=== PATIENT | female | born 1975 | race Caucasian/White ===

== ENCOUNTER 2017-09-01 07:45 | Emergency (ER) | payer SELFPAY ==
--- NOTE | 2017-09-01 07:45 | DT_ITS ---
This patient was seen during an EMR downtime August 31, 2017 - September 07, 2017. This patient may have a combination of paper and electronic documentation or all paper documentation. All documentation is viewable within the e-chart portion of [employer] for each patient visit.
[2017-09-03 18:54] LABS: Bacteria 0 SEEN /hpf (None Seen); Color, Urine Yellow (Yellow); Glucose, Dipstick Normal (Normal); Ketone-Dipstick Negative (Negative); Leukocyte Esterase-Dipstick Negative /ul (Negative); Mucous, Urine 0 SEEN /hpf (<or=2+); Nitrite-Dipstick Negative (Negative); Occult Blood-Urine Negative /ul (Negative); Protein-Dipstick Negative (Negative); Red Blood Cells-Urine 0 SEEN /hpf (0-5); Squamous Epithelial Cells - UA 0 SEEN /hpf (5-10); Urine Bilirubin Dipstick Negative (Negative); Urine Clarity Clear (Clear); Urine Urobilinogen Normal (Normal); White Blood Cells 0 SEEN /hpf (0-5); Yeast-Urine RARE /hpf (None Seen)
[2017-09-03 18:57] LABS: Internal QC Validated? YES +Cl - CLEAR BKGD; Pregnancy, Urine Negative Negative
== END 2017-09-01 09:58 | disposition home or self-care (01) ==
PROVIDERS: Emergency Provider Emergency Medicine
DX: R11.2 Nausea with vomiting, unspecified (principal); M54.2 Cervicalgia; R51 Headache; F17.210 Nicotine dependence, cigarettes, uncomplicated
CPT/HCPCS: 81001; 81025; 99283

== ENCOUNTER 2017-12-11 18:06 | Emergency (ER) | payer SELFPAY ==
[2017-12-11 18:06] VITALS: BP 123/68; PULSE 85; RESP 18; TEMP 36.6; O2SAT 97; BMI 18.7
--- NOTE | 2017-12-11 18:30 | RAD_ITS ---
STUDY: X-RAY CHEST REASON FOR EXAM: Female, 42 years old. Cough and sore throat. TECHNIQUE: Single AP portable view of the chest. COMPARISON: None. FINDINGS: There is hyperinflation of the lungs consistent with chronic obstructive lung disease (COPD). No infiltrates or effusions. There is no demonstrated pleural abnormality. Normal size heart. Normal mediastinum and stevan. Normal visualized pulmonary arteries. Normal visualized aortic arch and descending thoracic aorta. Normal visualized thoracic spine. Normal visualized ribs, clavicles, and shoulders. There is no demonstrated abnormality of the visualized soft tissue structures of the upper abdomen. RAD/Chest 1 View (Portable) IMPRESSION: There are findings consistent with COPD. There is no evidence of acute chest disease. Electronically Signed: Feliciano Taylor MD at 18:45 EDT , Service support ,
[2017-12-11] MEDS: Ipratropium/Albuterol Sulfate 3 ML AMPUL.NEB INHALATION (18:39)
[2017-12-11 18:42] VITALS: PULSE 70; RESP 22
[2017-12-11] MEDS: Albuterol 2.5 MG/3 ML VIAL.NEB. INHALATION (20:27)
--- NOTE | 2017-12-11 20:37 | ED.DEP ---
ED Disposition - Plan for ED Patient: Chief Complaint: Cold Sx Instructions: ED Upper Resp Infec No Abx Tx Prescriptions: Prednisone [Deltasone] 40 mg PO DAILY #10 tablet Referrals: Care Physician,No Primary [Primary Care Provider] - Benedict Randolph MD [STAFF PHYSICIAN] -
--- NOTE | 2017-12-11 20:38 | ED.VISSUMM ---
- ER Visit Summary Date of Service: 12/11/17 Chief Complaint: Cough, shortness of breath History of Present Illness: The patient is a 42 F presenting with cough, shortness of breath. Her symptoms started yesterday. She was exposed to another person with strep throat and bronchitis. She has had painful swallowing but no difficulty swallowing. She has had a nonproductive cough and shortness of breath. She has a history of COPD and states she is supposed to have a nebulizer but currently does not have any medications. She does not currently have a primary care physician. She is a smoker. She denies chest pain. Denies other complaints. Physical Examination: Vitals are stable. Patient is afebrile. Alert no acute distress. HEENT exam pharyngeal erythema with no exudate, uvula is midline Neck is supple. Lungs are expiratory wheezing bilaterally. Heart is regular rate and rhythm. Abdomen is soft nontender nondistended. Extremities are unremarkable. Skin is warm and dry. No focal neurologic deficit. Remainder of exam is unremarkable. Emergency Department Course and Treatment: Patient was given albuterol, Atrovent with improvement. Chest x-ray shows there are findings consistent with COPD. There is no evidence of acute chest disease. Rapid strep was negative. She is feeling improved following breathing treatments. Lungs are clear and equal bilaterally. She is given a prescription for prednisone. She is given an albuterol MDI. She is advised to follow with Dr. Randolph universal branch consultant for no doc. Advised return to ED for worsening complaints. Disposition: Discharge home Impression: Bronchitis This note was generated with [employer] dictation software. It may contain incorrect words, spelling, and punctuation that were not noted in review of the chart prior to signing ED Disposition - Plan for ED Patient: Chief Complaint: Cold Sx Instructions: ED Upper Resp Infec No Abx Tx Prescriptions: Prednisone [Deltasone] 40 mg PO DAILY #10 tablet Referrals: Benedict Randolph MD [STAFF PHYSICIAN] - Care Physician,No Primary [Primary Care Provider] -
--- NOTE | 2017-12-11 20:44 | ED.DCSUM_ITS ---
- ER Visit Summary Date of Service: 12/11/17 Chief Complaint: Cough, shortness of breath History of Present Illness: The patient is a 42 F presenting with cough, shortness of breath. Her symptoms started yesterday. She was exposed to another person with strep throat and bronchitis. She has had painful swallowing but no difficulty swallowing. She has had a nonproductive cough and shortness of breath. She has a history of COPD and states she is supposed to have a nebulizer but currently does not have any medications. She does not currently have a primary care physician. She is a smoker. She denies chest pain. Denies other complaints. Physical Examination: Vitals are stable. Patient is afebrile. Alert no acute distress. HEENT exam pharyngeal erythema with no exudate, uvula is midline Neck is supple. Lungs are expiratory wheezing bilaterally. Heart is regular rate and rhythm. Abdomen is soft nontender nondistended. Extremities are unremarkable. Skin is warm and dry. No focal neurologic deficit. Remainder of exam is unremarkable. Emergency Department Course and Treatment: Patient was given albuterol, Atrovent with improvement. Chest x-ray shows there are findings consistent with COPD. There is no evidence of acute chest disease. Rapid strep was negative. She is feeling improved following breathing treatments. Lungs are clear and equal bilaterally. She is given a prescription for prednisone. She is given an albuterol MDI. She is advised to follow with Dr. Randolph instructional systems design consultant for no doc. Advised return to ED for worsening complaints. Disposition: Discharge home Impression: Bronchitis This note was generated with [employer] dictation software. It may contain incorrect words, spelling, and punctuation that were not noted in review of the chart prior to signing ED Disposition - Plan for ED Patient: Chief Complaint: Cold Sx Instructions: ED Upper Resp Infec No Abx Tx Prescriptions: Prednisone [Deltasone] 40 mg PO DAILY #10 tablet Referrals: Benedict Randolph MD [STAFF PHYSICIAN] - Care Physician,No Primary [Primary Care Provider] -
[2017-12-11] MEDS: predniSONE 20 MG Tablet 60 MG PO (21:11)
[2017-12-11 21:18] VITALS: BP 105/67; PULSE 86; RESP 17; O2SAT 96
== END 2017-12-11 21:18 | disposition home or self-care (01) ==
PROVIDERS: Emergency Provider Emergency Medicine
DX: J40 Bronchitis, not specified as acute or chronic (principal); J44.9 Chronic obstructive pulmonary disease, unspecified; F17.200 Nicotine dependence, unspecified, uncomplicated
CPT/HCPCS: 71045; 87880; 94640; 99283

== ENCOUNTER 2017-12-14 21:24 | Emergency (ER) | payer SELFPAY ==
[2017-12-14 21:26] VITALS: BP 97/68; PULSE 73; RESP 18; TEMP 36.6; O2SAT 98; BMI 18.3
--- NOTE | 2017-12-14 22:00 | RAD_ITS ---
STUDY: X-RAY CHEST REASON FOR EXAM: Female, 42 years old. Cough TECHNIQUE: PA and lateral views of the chest. COMPARISON: December 11, 2017 chest x-ray FINDINGS: The lungs are hyperinflated there is no visualized focal consolidation or pleural effusion. There is no demonstrated pleural abnormality. Normal size heart. Normal mediastinum and stevan. Normal visualized pulmonary arteries. Normal visualized aortic arch and descending thoracic aorta. Normal visualized thoracic spine. Normal visualized ribs, clavicles, and shoulders. There is no demonstrated abnormality of the visualized soft tissue structures of the upper abdomen. RAD/Chest PA and Lateral IMPRESSION: Nonspecific hyperinflation of the lungs. Visualized focal infiltrate. Electronically Signed: Danielle Dunaway MD at 22:37 EDT Tel , Service support ,
[2017-12-14] MEDS: Acetaminophen 500 MG Tablet 1000 MG PO (22:08)
[2017-12-14] MEDS: Ipratropium/Albuterol Sulfate 3 ML AMPUL.NEB INHALATION (22:08)
[2017-12-14 22:14] VITALS: PULSE 75; RESP 16
--- NOTE | 2017-12-14 23:03 | ED.VISSUMM ---
- ER Visit Summary Date of Service: 12/14/17 Chief Complaint: Cough History of Present Illness: The patient is a 42 F with no primary care physician. She reports she has cough began 3 days ago. Initially the sputum was clear. However, she reports is now become white and yellow. She was seen in the emergency department had a chest x-ray that was negative. She was placed on albuterol MDI and prednisone. She reports that she is not feeling any improvement. Patient complains of subjective fever, chills, cold sweats. She reports she has a sore throat with coughing only. She reports that she is short of breath and has been wheezing. She is getting transient relief with the inhaler. She does smoke half pack per day. Physical Examination: Vitals: Stable. Afebrile. General: Well-nourished and well-developed. Head: Normocephalic atraumatic. HEENT: Posterior oral pharyngeal erythema. No tonsillar exudate or enlargement. Neck: Supple, no lymphadenopathy. No JVD. Nontender. Cardiovascular: Regular rate and rhythm. No murmurs. Respiratory: No respiratory distress. Clear to auscultation bilaterally. Abdominal: Soft, nontender, nondistended, normal bowel sounds. No guarding, rebound, or peritoneal signs. Back: Nontender. Extremities: Nontender, no edema. Skin: Normal color, no rash. Neurologic: Alert and oriented ?3. Cranial nerves II through XII are intact. Normal strength and sensation. Psych: Normal affect. Test Results: Chest x-ray shows emphysematous changes. Emergency Department Course and Treatment: Patient was treated albuterol Atrovent aerosols. She is given Tylenol and Zithromax p.o. She is resting comfortably. Treatment Plan: Patient will have Zithromax added to her albuterol MDI and prednisone at home. In[facility]ed [facility]5 [facility] if not improving. Return to the emergency department for any worsening symptoms. Disposition: To home in improved and stable condition. Impression: 1. COPD exacerbation. This note was generated with [employer] dictation software. It may contain incorrect words, spelling, and punctuation that were not noted in review of the chart prior to signing ED Disposition - Plan for ED Patient: Disposition: Home or Assisted Living Chief Complaint: Cough Instructions: ED COPD Flare Prescriptions: Azithromycin [Zithromax] 250 mg PO DAILY #4 tablet Referrals: Mary Rider [NON-STAFF] - 3-5 Days if not improving
[2017-12-14] MEDS: Azithromycin 250 MG Tablet 500 MG PO (23:17)
[2017-12-14 23:19] VITALS: BP 88/70; PULSE 62; RESP 18; O2SAT 95
== END 2017-12-14 23:22 | disposition home or self-care (01) ==
LOC: ED 22:13
PROVIDERS: Emergency Provider Emergency Medicine
DX: J45.901 Unspecified asthma with (acute) exacerbation (principal); F17.200 Nicotine dependence, unspecified, uncomplicated
CPT/HCPCS: 71046; 94640; 99283

== ENCOUNTER 2017-12-19 14:24 | Emergency (ER) | payer SELFPAY ==
[2017-12-19 14:26] VITALS: BP 118/70; PULSE 60; RESP 18; TEMP 36.6; O2SAT 98; BMI 18.6
--- NOTE | 2017-12-19 14:48 | ED.DCSUM_ITS ---
- ER Visit Summary Date of Service: 12/19/17 Chief Complaint: Cough and shortness of breath History of Present Illness: The patient is a 42 F who presents with cough and shortness of breath. She has had a URI-like illness for about 1 week with congestion and cough and feeling short of breath. She has been diagnosed with likely COPD exacerbation. She has recently been treated with Antivert he also has an albuterol inhaler at home which she admits she is not using often. 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 She was referred to start him in clinic but has been unable to get in yet. She denies pain. Physical Examination: Afebrile vitals are normal Moist mucous membranes Heart regular rate and rhythm Lungs are clear no rales rhonchi or wheezes Abdomen soft Alert Test Results: Not indicated Emergency Department Course and Treatment: Patient clinically appears well. She has normal vital signs and normal pulse oximetry. She does not appear dyspneic. She does not have increased work of breathing or retractions. Her lungs are clear there is no wheezing. She does have a notable cough while in the room. She was advised to use her albuterol inhaler as needed at home but I do not believe she needs another course of steroids or antibiotics. I was advised that I think this will just take more time to improve. She was given a work note and discharged home. Treatment Plan: [] Disposition: Discharge Impression: Bronchitis This note was generated with [employer] dictation software. It may contain incorrect words, spelling, and punctuation that were not noted in review of the chart prior to signing ED Disposition - Plan for ED Patient: Chief Complaint: Cough Referrals: Care Physician,No Primary [Primary Care Provider] -
--- NOTE | 2017-12-19 14:48 | ED.DEP ---
ED Disposition - Plan for ED Patient: Chief Complaint: Cough Instructions: Acute Bronchitis Referrals: Care Physician,No Primary [Primary Care Provider] - Mary Rider [NON-STAFF] -
[2017-12-19 15:00] VITALS: O2SAT 98
[2017-12-19 15:02] VITALS: PULSE 65; RESP 16; O2SAT 99
== END 2017-12-19 15:03 | disposition home or self-care (01) ==
PROVIDERS: Emergency Provider Emergency Medicine
DX: J40 Bronchitis, not specified as acute or chronic (principal); J44.9 Chronic obstructive pulmonary disease, unspecified; Z72.0 Tobacco use
CPT/HCPCS: 99282

== ENCOUNTER 2018-04-07 17:16 | Emergency (ER) | payer SELFPAY ==
[2018-04-07 17:17] VITALS: BP 109/69; PULSE 70; RESP 16; TEMP 36.8; O2SAT 99; BMI 21.5
--- NOTE | 2018-04-07 17:33 | ED.DCSUM_ITS ---
- ER Visit Summary Date of Service: 04/07/18 Chief Complaint: [Cough and shortness of breath History of Present Illness: The patient is a 43 F [presents to the emergency department with cough and shortness of breath times 2 days. Patient denies any fever. Patient has had some chills and sweats. Patient has had increased sputum production that is yellow and green at times. Patient complains of body aches and a sore throat. Patient generally feels weak. Patient does have a history of COPD. She denies any sick contacts.] Physical Examination: [HEENT-PERRLA, EOMI. Cranial nerves II through XII grossly intact. TMs clear. Mucous membranes moist. No adenopathy. Cardiovascular-regular rate and rhythm without murmur or ectopy Lungs-good aeration bilaterally. Minimal expiratory wheeze noted bilaterally. No accessory muscle use or retractions. No conversational dyspnea. Abdomen-normoactive bowel sounds, soft, nontender, no rebound or rigidity, no peritoneal signs. Extremities-intact ?4, normal range of motion, normal pulses, atraumatic] Test Results: [None indicated] Emergency Department Course and Treatment: [] Treatment Plan: [Patient will be treated with doxycycline, Tessalon Perles, and prednisone. Patient also will be given a prescription for albuterol for her nebulizer as well as an butyryl MDI.] Disposition: [Discharged home in stable condition. Advised to return if increasing shortness of breath or condition should worsen anyway.] Impression: [Asthmatic bronchitis] This note was generated with [employer] dictation software. It may contain incorrect words, spelling, and punctuation that were not noted in review of the chart prior to signing ED Disposition - Plan for ED Patient: Chief Complaint: Shortness of Breath Referrals: Care Physician,No Primary [Primary Care Provider] -
--- NOTE | 2018-04-07 17:33 | ED.DEP ---
ED Disposition - Plan for ED Patient: Chief Complaint: Shortness of Breath Instructions: ED Bronchitis Asthmatic Prescriptions: Albuterol Aerosols [Ventolin Aerosols] 2.5 mg INHALATION Q4H PRN #25 vial Albuterol Inhaler [Ventolin Hfa] 1 - 2 puff INHALATION Q4H PRN PRN #1 inhaler PRN Reason: Wheezing Benzonatate [Tessalon Perle] 200 mg PO TID PRN PRN #20 cap PRN Reason: Cough Prednisone [Deltasone] 40 mg PO DAILY #10 tab Doxycycline 100 mg PO BID #20 cap Referrals: Care Physician,No Primary [Primary Care Provider] - Hood Chavarria III, MD [STAFF PHYSICIAN] - 5-7 Days
[2018-04-07 18:08] VITALS: PULSE 74; RESP 17; TEMP 36.8; O2SAT 99
[2018-04-07 18:10] VITALS: PULSE 74; RESP 17; O2SAT 99
== END 2018-04-07 18:11 | disposition home or self-care (01) ==
PROVIDERS: Emergency Provider Emergency Medicine
DX: J44.9 Chronic obstructive pulmonary disease, unspecified (principal); Z72.0 Tobacco use
CPT/HCPCS: 99282

== ENCOUNTER 2018-04-20 20:20 | Emergency (ER) | payer SELFPAY ==
[2018-04-20 20:21] VITALS: BP 125/63; PULSE 83; RESP 30; TEMP 36.4; O2SAT 99; BMI 20.1
[2018-04-20 22:05] VITALS: PULSE 73; RESP 20
[2018-04-20] MEDS: Ipratropium/Albuterol Sulfate 3 ML AMPUL.NEB INHALATION (22:05)
[2018-04-20] MEDS: predniSONE 20 MG Tablet 60 MG PO (22:15)
[2018-04-20 22:20] VITALS: BP 105/62; PULSE 7; RESP 22; O2SAT 100
--- NOTE | 2018-04-20 22:22 | RAD_ITS ---
STUDY: X-RAY CHEST REASON FOR EXAM: Female, 43 years old. Shortness of breath TECHNIQUE: Frontal and lateral views COMPARISON: December 14, 2017 FINDINGS: The lungs are hyperaerated. There is no demonstrated pleural abnormality. Normal size heart. Normal mediastinum and stevan. Normal visualized pulmonary arteries. Normal visualized aortic arch and descending thoracic aorta. Mild degenerative changes of the thoracic spine. Normal visualized ribs, clavicles, and shoulders. There is no demonstrated abnormality of the visualized soft tissue structures of the upper abdomen. RAD/Chest PA and Lateral IMPRESSION: Hyperaeration. Electronically Signed: Isai Johnson DO at 22:58 EST Tel [phone], Service support ,
[2018-04-20 22:27] LABS: Absolute Lymphocyte Count 3.06 X10^3/ul (0.83-4.51); Absolute Neutrophil Count 14.1 X10^3/uL (2.0-7.7); Basophil# 0.02 X10^3/uL; Basophil% 0.1 % (0-1); Eosinophil# 0.03 X10^3/uL; Eosinophils% 0.2 % (0-5); Hematocrit 38.4 % (37-47); Hemoglobin 13.2 g/dl (12.0-15.0); Lymphocyte # 3.06 X10^3/ul (4.0); Lymphocyte % 16.6 % (19-41); Mean Corp Hgb Conc 34.4 g/gl (32-36); Mean Corpuscular Hgb 32.9 pg (27.0-32.0); Mean Corpuscular Volume 95.8 fL (81-99); Mean Platelet Vol. 9.7 fl (6.2-12.0); Monocyte# 1.16 X10^3/uL; Monocyte% 6.3 % (0-10); Neutrophil # 14.14 X10^3/uL (2.7-7.7); Neutrophil % 76.5 % (47-70); Platelet Count 265 K/mm3 (150-450); RBC Distribution Width CV 13.2 % (11.6-14.6); RBC Distribution Width SD 46.5 fl (35.1-43.9); Red Blood Count 4.01 M/mm3 (4.2-5.4); White Blood Count 18.5 K/mm3 (4.4-11.0)
[2018-04-20 22:29] LABS: POSITIVE COUNT NO; POSITIVE DIFFERENTIAL NO; POSITIVE MORPHOLOGY NO
[2018-04-20 22:43] LABS: Anion Gap 9 (5-15); BUN 16 mg/dL (7-18); BUN/Creat Ratio 17.7 RATIO (10-20); Calcium,Total 8.8 mg/dL (8.5-10.1); Chloride 108 mmol/L (98-107); EST Glomerular Filtration Rate 72 mL/min (>60); Est Glom Filt Rate - Afr Amer 87 mL/min (>60); Estimated Creatinine Clearance 72.14 ml/min; Glucose 89 mg/dL (74-106); Potassium 3.6 mmol/L (3.5-5.1); Sodium Level 140 mmol/L (136-145)
--- NOTE | 2018-04-21 00:17 | ED.VISSUMM ---
- ER Visit Summary Date of Service: 04/21/18 Chief Complaint: Shortness of breath History of Present Illness: The patient is a 43 F who presents with shortness of breath that has been waxing and waning over the past 1-2 weeks. Patient states her breathing is worse when she is at work walking in the cold weather. Patient admits to a cough with some green yellow sputum. Patient also admits to a sore throat. Patient admits to subjective chills. Patient also admits to some mild aching in her chest bilaterally. Patient denies any fevers. Patient denies any vomiting. Patient admits to some mild nausea. Patient states she does have a history of COPD but currently does not have a office workforce planner to follow-up with. Patient is a smoker. Physical Examination: Vital signs are stable. Patient is afebrile. Patient is in no acute distress. Oral mucosa is pink and moist. Neck is supple. Trachea is midline. There is no JVD noted. Heart was regular rate and rhythm. Lungs showed mild expiratory wheezes bilaterally. There is good respiratory effort noted. Abdomen is soft. Bowel sounds are normal. There is no tenderness. Cranial nerves II through XII are intact. There are no focal motor or sensory deficits noted. The remaining physical exam is within normal limits. Test Results: Chest x-ray does not show any acute infiltrate. There is hyperaeration noted. CBC showed a mild leukocytosis. Patient recently completed a course of prednisone. Metabolic profile was essentially within normal limits. Emergency Department Course and Treatment: Patient was given a DuoNeb aerosol here. Patient was given a dose of prednisone here. Patient was feeling better on reevaluation. Patient requested to follow-up with Dr. Sky for pulmonology. Patient was given a referral to him. Patient was given a prescription for prednisone. Patient was instructed to follow-up in 5-7 days. Patient understood and was agreeable with the plan. All questions were answered. Disposition: Discharge home Impression: COPD exacerbation This note was generated with [employer] dictation software. It may contain incorrect words, spelling, and punctuation that were not noted in review of the chart prior to signing ED Disposition - Plan for ED Patient: Disposition: Home or Assisted Living Chief Complaint: Shortness of Breath Diagnosis: COPD exacerbation Instructions: ED COPD Flare Prescriptions: predniSONE tablet 60 mg PO DAILY #12 tab Referrals: Care Physician,No Primary [Primary Care Provider] -
--- NOTE | 2018-04-21 00:23 | ED.VISSUMM ---
- ER Visit Summary Date of Service: 04/21/18 Treatment Plan: This note was added to add Dr. Sky as a referral. This note was generated with [employer] dictation software. It may contain incorrect words, spelling, and punctuation that were not noted in review of the chart prior to signing ED Disposition - Plan for ED Patient: Disposition: Home or Assisted Living Chief Complaint: Shortness of Breath Diagnosis: COPD exacerbation Instructions: ED COPD Flare Prescriptions: predniSONE tablet 60 mg PO DAILY #12 tab Referrals: Care Physician,No Primary [Primary Care Provider] - Rafiq Sky MD [NON-STAFF] -
--- NOTE | 2018-04-21 00:32 | ED.DCSUM_ITS ---
- ER Visit Summary Date of Service: 04/21/18 Treatment Plan: This note was added to add Dr. Sky as a referral. This note was generated with [employer] dictation software. It may contain incorrect words, spelling, and punctuation that were not noted in review of the chart prior to signing ED Disposition - Plan for ED Patient: Disposition: Home or Assisted Living Chief Complaint: Shortness of Breath Diagnosis: COPD exacerbation Instructions: ED COPD Flare Prescriptions: predniSONE tablet 60 mg PO DAILY #12 tab Referrals: Care Physician,No Primary [Primary Care Provider] - Rafiq Sky MD [NON-STAFF] -
[2018-04-21 00:36] VITALS: BP 121/86; PULSE 61; RESP 18; O2SAT 98
--- OUTSIDE RECORDS SUMMARY | 2018-06-22 23:52 | XMS RPT_ITS ---
:1975 Author Organization [facility] Care Team Providers Name Role Phone Dusty Castaneda Attending Unavailable Dusty Castaneda Referring Unavailable Primay Care Physicia, No Primary Care Unavailable Primay Care Physicia, No Primary Care Unavailable June Carmichael Attending Unavailable Primay Care Physicia, No Primary Care Unavailable Paulina Clinton Attending Unavailable Primay Care Physicia, No Primary Care Unavailable Farzad [place] Attending Unavailable Primay Care Physicia, No Primary Care Unavailable Magdi Rutledge Attending Unavailable Primay Care Physicia, No Primary Care Unavailable Balbir Muse Attending Unavailable KELLEY CORDERO Referring Unavailable KELLEY CORDERO Referring Unavailable KELLEY CORDERO Attending Unavailable KELLEY CORDERO Referring Unavailable No Doctor Assigned, Nodr Primary Care Unavailable Sis Manjarrez Admitting Unavailable Loki Sis Attending Unavailable Gab Angel Admitting Unavailable Gab Angel Attending Unavailable No Doctor Assigned, Nodr Primary Care Unavailable Gab Angel Admitting Unavailable Gab Angel Attending Unavailable No Doctor Assigned, Nodr Primary Care Unavailable PROBLEMS PROBLEMS DATE TYPE CONDITION / CODE ATTENDING STATUS SOURCE 04/22/2018 Active Chronic NA Active [facility] obstructive [facility] pulmonary Repository disease, unspecified / J44.9(ICD-10) 09/25/2017 Unknown R11.2 - Nausea Dusty Castaneda Active [place] with vomiting, Community unspecified / Hospital R11.2(ICD-10) Repository PROCEDURES PROCEDURES No Procedure Records FoundRESULTS RESULTS OBSOLETE Observed: 04/22/2018 Status: COMPLETED Source: [place] 11:30 AM [facility] REPOSITORY Procedure (PULMWS) LAVONNE HEREDIA ([id number]) 1975 F Date Time Provider Department 04/22/18 11:30 AM RESPIRATORY THERAPIST [facility] During your visit today, we recorded the following information about you: Pulse Respiration Weight Height 60/minute 22/minute 54 kg 1.646 m Referring Provider: KELLEY CORDERO [[id number]] Allergies As of Date: 04/22/2018 (Not on File) Date Reviewed: Never Reviewed Reason for Visit: Spirometry [191] Visit Diagnosis:Chronic obstructive pulmonary disease, unspecified COPD type (HCC) [J44.9] Order(s):SPIROMETRY WITH DILATOR IF OBSTRUCTED [8015130] Order #: [id number]. #:[id number] Prescriptions as of 04/22/2018 Sig: ALBUTEROL SULFATE 2.5 MG/3 ML* Use one vial via nebulizer ev* VENTOLIN HFA 90 MCG/ACTUATION* Inhale one to two puffs every* Problem List As Of Date: 04/22/2018 (None) Encounter Status:Closed by KELSY SHIELDS RRT on 04/22/18 EMERGENCY DEPARTMENT Observed: 04/21/2018 Status: F Source: [place] SUMMARY 12:33 AM [facility] REPOSITORY [facility] Medical Records Department [address] [place] [address] Emergency Department Summary 04/21/18 0023 MR#: [id number] Acct: [id number] Name: LAVONNE HEREDIA Rep #: [id number] : 1975 43 From: Farzad [place] DO PCP: Care Physician, No Primary Status: REG ER - ER Visit Summary Date of Service: 04/21/18 Treatment Plan: This note was added to add Dr. Cordero as a referral. This note was generated with [employer] software. It may contain incorrect words, spelling, and punctuation that were not noted in review of the chart prior to signing ED Disposition - Plan for ED Patient: Disposition: Home or Assisted Living Chief Complaint: Shortness of Breath Diagnosis: COPD exacerbation Instructions: ED COPD Flare Prescriptions: predniSONE tablet 60 mg PO DAILY #12 tab Referrals: Care Physician,No Primary [Primary Care Provider] - Kelley Cordero MD [NON-STAFF] - What to do if you have Problems For any increased pain, shortness of breath, bleeding, nausea or vomiting, chest pain, or any unexpected problems, contact your Primary Care Provider. Call [facility] ([phone]) or report to the closest Emergency Room. Call 911 if necessary. 04/21/18 0033 <Electronically signed by Farzad [place] DO> Date Farzad [place] DO Cosigner Signature (If Indicated): Date CC: No Primary Care Physician EMERGENCY DEPARTMENT Observed: 04/21/2018 Status: F Source: [place] [facility] 12[facility]22 AM [facility] Medical Records Department [address] [place] [address] Emergency Department Summary 04/21/18 0017 MR#: [id number] Acct: [id number] Name: LAVONNE HEREDIA Rep #: [id number] : 1975 43 From: Farzad [place] DO PCP: Care Physician, No Primary Status: REG ER - ER Visit Summary Date of Service: 04/21/18 Chief Complaint: Shortness of breath History of Present Illness: The patient is a 43 F who presents with shortness of breath that has been waxing and waning over the past 1-2 weeks. Patient states her breathing is worse when she is at work walking in the cold weather. Patient admits to a cough with some green yellow sputum. Patient also admits to a sore throat. Patient admits to subjective chills. Patient also admits to some mild aching in her chest bilaterally. Patient denies any fevers. Patient denies any vomiting. Patient admits to some mild nausea. 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 Patient is a smoker. Physical Examination: Vital signs are stable. Patient is afebrile. Patient is in no acute distress. Oral mucosa is pink and moist. Neck is supple. Trachea is midline. There is no JVD noted. Heart was regular rate and rhythm. Lungs showed mild expiratory wheezes bilaterally. There is good respiratory effort noted. Abdomen is soft. Bowel sounds are normal. There is no tenderness. Cranial nerves II through XII are intact. There are no focal motor or sensory deficits noted. The remaining physical exam is within normal limits. Test Results: Chest x-ray does not show any acute infiltrate. There is hyperaeration noted. CBC showed a mild leukocytosis. Patient recently completed a course of prednisone. Metabolic profile was essentially within normal limits. Emergency Department Course and Treatment: Patient was given a DuoNeb aerosol here. Patient was given a dose of prednisone here. Patient was feeling better on reevaluation. Patient requested to follow-up with Dr. Cordero for pulmonology. Patient was given a referral to him. Patient was given a prescription for prednisone. Patient was instructed to follow-up in 5-7 days. Patient understood and was agreeable with the plan. All questions were answered. Disposition: Discharge home Impression: COPD exacerbation This note was generated with Future Domain dictation software. It may contain incorrect words, spelling, and punctuation that were not noted in review of the chart prior to signing ED Disposition - Plan for ED Patient: Disposition: Home or Assisted Living Chief Complaint: Shortness of Breath Diagnosis: COPD exacerbation Instructions: ED COPD Flare Prescriptions: predniSONE tablet 60 mg PO DAILY #12 tab Referrals: Care Physician,No Primary [Primary Care Provider] - What to do if you have Problems For any increased pain, shortness of breath, bleeding, nausea or vomiting, chest pain, or any unexpected problems, contact your Primary Care Provider. Call [facility] ([phone]) or report to the closest Emergency Room. Call 911 if necessary. 04/21/18 0022 <Electronically signed by Farzad [place] DO> Date Farzad [place] DO Cosigner Signature (If Indicated): Date CC: No Primary Care Physician CBC W/DIFF, AUTOMATED Collected: 04/20/2018 Status: F Source: [facility] 10:20 PM [facility] REPOSITORY TYPE CODE TESTS RESULT OUT OF RANGE REFERENCE UNITS LAB L100.1000 4.4-11.0 K/mm3 High WBC 18.5 LAB L100.1200 4.2-5.4 M/mm3 Low RBC 4.01 LAB L100.1300 12.0-15.0 g/dl Normal HGB 13.2 LAB L100.1400 37-47 % Normal HCT 38.4 LAB L100.1500 81-99 fL Normal MCV 95.8 LAB L100.1600 27.0-32.0 pg High MCH 32.9 LAB L100.1700 32-36 g/gl Normal MCHC 34.4 LAB L100.1810 11.6-14.6 % Normal RDW CV 13.2 LAB L100.1820 35.1-43.9 fl High RDW SD 46.5 LAB L100.1900 150-450 K/mm3 Normal PLT 265 LAB L100.2000 6.2-12.0 fl Normal MPV 9.7 LAB L100.2100 47-70 % High NEUT% 76.5 LAB L100.2200 19-41 % Low LY% 16.6 LAB L100.2300 0-10 % Normal MONO% 6.3 LAB L100.2400 0-5 % Normal EO% 0.2 LAB L100.2500 0-1 % Normal BASO% 0.1 LAB L100.2550 0.0-0.9 % Normal IM GRAN % 0.300 Result Comment: IG% - Immature Granulocytes (promyelocytes, myelocytes and metamyelocytes) > 1% indicates that a LEFT SHIFT is Present. LAB L100.2620 2.0-7.7 X10 3/uL High Absolute Neut 14.1 LAB L100.2720 0.83-4.51 X10 3/ul Normal Absolute Lymph 3.06 Performed By: #### L100.0100 #### [facility] [address] [place], [address] BASIC METABOLIC Collected: 04/20/2018 Status: F Source: [place] PROFILE ([facility]) 10:20 PM [facility] REPOSITORY TYPE CODE TESTS RESULT OUT OF RANGE REFERENCE UNITS LAB L501.0100 74-106 mg/dL Normal GLU 89 Result Comment: Please note revised GLUCOSE reference range effective 2017. LAB L501.1000 7-18 mg/dL Normal BUN 16 LAB L501.1100 0.55-1.02 mg/dL Normal CREAT,SERUM 0.90 Result Comment: The validity of the calculated GFR AND GFRAA in patients over 70 years has not been determined. Clinical correlation is essential. LAB L501.1110 >60 mL/min Normal EST GFR 72 Result Comment: Non- GFR Calc LAB L501.1115 >60 mL/min Normal EST GFR - AA 87 Result Comment: GFR Calc LAB L501.1255 ml/min Normal Estimated CRCL 72.14 LAB L501.1300 10-20 RATIO Normal BUN/CRE 17.7 LAB L501.2200 8.5-10 mg/dL Normal .1 CA 8.8 LAB L501.5300 136-14 mmol/L Normal 5 NA 140 LAB L501.5600 3.5-5. mmol/L Normal 1 K 3.6 LAB L501.5900 98-107 mmol/L High CL 108 LAB L501.6100 21.0-3 mmol/L Normal 2.0 CO2 23.0 LAB L501.6200 5-15 Normal GAP 9 Performed By: #### L500.2500 #### [facility] [address] [place], [address] CHEST PA AND LATERAL Observed: 04/20/2018 Status: F Source: [place] 9:59 PM [facility] REPOSITORY [facility] Imaging Services [address] [place] [address] Chest PA and Lateral MR#: [id number] Acct: [id number] Name: LAVONNE HEREDIA Rep #: [id number] : 1975 F 43 From: Isai Johnson DO PCP: Care Physician, No Primary Status: REG ER Study: Chest PA and Lateral Date of Exam: 04/20/18 Exam# [id number] Ordering Dr: Farzad [place] DO STUDY: X-RAY CHEST REASON FOR EXAM: Female, 43 years old. Shortness of breath TECHNIQUE: Frontal and lateral views COMPARISON: December 14, 2017 FINDINGS: The lungs are hyperaerated. There is no demonstrated pleural abnormality. Normal size heart. Normal mediastinum and stevan. Normal visualized pulmonary arteries. Normal visualized aortic arch and descending thoracic aorta. Mild degenerative changes of the thoracic spine. Normal visualized ribs, clavicles, and shoulders. There is no demonstrated abnormality of the visualized soft tissue structures of the upper abdomen. RAD/Chest PA and Lateral IMPRESSION: Hyperaeration. Electronically Signed: Isai Johnson DO at 22:58 EST Tel [phone], Service support , CC: No Primary Care Physician; Farzad Schwiger, DO Reference Data Expert: Signed POC INFLUENZA A&B AG Collected: 04/14/2018 Status: F Source: [facility] 2:21 PM [facility] REPOSITORY TYPE CODE TESTS RESULT OUT OF REFERENCE UNITS RANGE LAB 57313126(L Negative OINC) Normal Influenzae A Ag Negative Result Comment: A negative test result does not exclude infection with influenza A and B. Therefore, the results obtained should be used in conjunction with clinical findings to make an accurate diagnosis. LAB 99288780(LOINC) Negative Normal Influenzae B Ag Negative LAB CD:[id number](LOINC) Positive Influ Normal A&B Int Pos Ctl Positive Performed By: #### [id number] #### [facility] [address] [place] [address] XR CHEST 2 VIEWS Observed: 04/14/2018 Status: F Source: [facility] 1:50 PM [facility] REPOSITORY Exam Date/Time: 04/14/2018 13:57 EST Reason for Exam: Shortness of breath (SOB) Report STUDY: XR Chest 2 Views; 04/14/2018 1:57 pm INDICATION: Shortness of breath (SOB). COMPARISON: 04/09/2018 ACCESSION NUMBER(S): [id number] ORDERING CLINICIAN: Gab Angel FINDINGS: The cardiac silhouette size is within normal limits. There is mild biapical scarring. There is no focal consolidation, edema or pneumothorax. No sizeable pleural effusion. No acute osseous abnormality. IMPRESSION: No radiographic evidence of acute cardiopulmonary process. FINAL REPORT Dictated: 04/14/2018 2:16 pm Norbert Caba MD Signed (Electronic Signature): 04/14/2018 2:16 pm Signed by: Norbert Caba MD Technologist: WESTONR XR CHEST AP PORTABLE Observed: 04/09/2018 Status: F Source: [facility] 7:45 PM [facility] REPOSITORY Exam Date/Time: 04/09/2018 19:47 EST Reason for Exam: Difficulty breathing Report STUDY: XR Chest AP Portable; 04/09/2018 7:47 pm INDICATION: Difficulty breathing. COMPARISON: None. ACCESSION NUMBER(S): [id number] ORDERING CLINICIAN: Emilio Gerber FINDINGS: Single AP view of the chest was obtained. There is no focal consolidation, large pleural effusion, or pneumothorax. There is a tiny 2 mm nodule in the left upper lung zone. The cardiomediastinal silhouette is within normal limits. The trachea is midline. No acute osseous abnormality. IMPRESSION: 1. No evidence of acute cardiopulmonary process. 2. 2 mm nodule in the left upper lung zone which may reflect a vessel or calcified granuloma. A solid pulmonary nodule cannot be excluded. Consider short- term follow-up cross-sectional imaging for further evaluation and to assess for any additional nodules. FINAL REPORT Dictated: 04/09/2018 8:32 pm Maurilio Seo MD Signed (Electronic Signature): 04/09/2018 8:32 pm Signed by: Maurilio Seo MD Technologist: YOSEF CBC W/ AUTO DIFF Collected: 04/09/2018 Status: F Source: [facility] 7:41 PM [facility] REPOSITORY TYPE CODE TESTS RESULT OUT OF RANGE REFERENCE UNITS LAB 42435356(L 3.6-11.0 E3/mcL OINC) High WBC 16.5 LAB 81684504(L 3.90-5.40 E6/mcL OINC) Normal RBC 3.99 LAB 05134445(L 12.0-16.0 G/DL OINC) Normal Hgb 13.3 LAB 96895345(L 36.0-48.0 % OINC) Normal Hct 39.2 LAB 28143007(L 11.5-14.5 % OINC) Normal RDW 13.5 LAB 84942922(L 27.0-31.0 pg OINC) High MCH 33.4 LAB 40200531(L 33.0-37.0 G/DL OINC) Normal MCHC 34.0 LAB 27130248(L 78.0-100.0 fL OINC) Normal MCV 98.2 LAB 83710221(L 7.4-11.0 fL OINC) Normal MPV 8.0 LAB 46841503(L 130-400 E3/mcL OINC) Normal Platelet 355 Performed By: #### [id number] #### [facility] [address] [place] [address] AUTO DIFF Collected: 04/09/2018 Status: F Source: [facility] 7:41 [facility] REPOSITORY Order Comment: Order Added by Discern Expert. TYPE CODE TESTS RESULT OUT OF RANGE REFERENCE UNITS LAB 38980310(L 37.0-75.0 % OINC) Normal Neutro Auto 72.3 LAB 90920143(L 20.0-55.0 % OINC) Low Lymph Auto 19.2 LAB 49586371(L 0.0-10.0 % OINC) Normal Williams Auto 7.5 LAB 54373403(L 0.0-11.0 % OINC) Normal Eos Auto 0.0 LAB 15231973(L 0.0-2.0 % OINC) Normal Basophil Auto 1.0 LAB 95081663(L 1.4-6.5 E3/mcL OINC) High Neutro 11.9 Absolute LAB 15681647(L 1.2-3.4 E3/mcL OINC) Normal Lymph Absolute 3.2 LAB 68944337(L 0.0-0.7 E3/mcL OINC) High Williams Absolute 1.2 LAB 59627796(L 0.0-0.7 E3/mcL OINC) Normal Eos Absolute 0.0 LAB 08763659(L 0.0-0.2 E3/mcL OINC) Normal Basophil 0.2 Absolute Performed By: #### [id number] #### [facility] [address] [place] [address] TROPONIN-I Collected: 04/09/2018 Status: F Source: [facility] 7:41 [facility] REPOSITORY TYPE CODE TESTS RESULT OUT OF RANGE REFERENCE UNITS LAB 44376743(LO .00-.03 ng/mL INC) Normal <.01 Troponin-I Performed By: #### [id number] #### [facility] [address] [place] [address] BMP Collected: 04/09/2018 Status: F Source: [facility] 7:41 [facility] REPOSITORY TYPE CODE TESTS RESULT OUT OF RANGE REFERENCE UNITS LAB 52606997(L 70-99 mg/dL OINC) High Glucose Lvl 117 LAB 74365322(L 6-23 mg/dL OINC) BUN Normal 21 LAB 4354675(LO 0.5-1.1 mg/dL INC) Normal Creatinine 0.8 LAB 71072331(L 5.4-30.0 ratio OINC) Normal BUN/Creat Ratio 26.2 LAB 66808552(L 8.6-10.3 mg/dL OINC) Calcium Normal Lvl 9.4 LAB 99023053(L 136-145 mEq/L OINC) Sodium Normal Lvl 136 LAB 21728889(L 3.5-5.3 mEq/L OINC) Normal Potassium Lvl 3.5 LAB 49219086(L 98-107 mEq/L OINC) Chloride Normal 107 LAB 73728996(L 21.0-32.0 mEq/L OINC) CO2 Normal 23.0 LAB 28832266(L 10-20 mEq/L OINC) AGAP Normal 10 Performed By: #### [id number] #### [facility] [employer] [address] [place] [address] EGFR Collected: 04/09/2018 Status: F Source: [facility] 7:41 PM [facility] REPOSITORY Order Comment: Order added by Discern Expert. TYPE CODE TESTS RESULT OUT OF RANGE REFERENCE UNITS LAB 83161916(LO mL/min/1.73 INC) m2 Normal eGFR >60 LAB 50142692(LO mL/min/1.73 INC) m2 Normal eGFR AA >60 Performed By: #### [id number] #### [facility] [employer] [address] [place] [address] DISCHARGE INSTRUCTION Observed: 04/07/2018 Status: F Source: [place] 5:35 PM [facility] RE[facility]IT[facility] Medical Records Department [address] [place] [address] Discharge Instruction 04/07/18 1733 MR#: [id number] Acct: [id number] Name: LAVONNE HEREDIA Rep #: [id number] : 1975 43 From: Paulina [place] DO PCP: Care Physician, No Primary Status: PRE ER ED Disposition - Plan for ED Patient: Chief Complaint: Shortness of Breath Instructions: ED Bronchitis Asthmatic Prescriptions: Albuterol Aerosols [Ventolin Aerosols] 2.5 mg INHALATION Q4H PRN #25 vial Albuterol Inhaler [Ventolin Hfa] 1 - 2 puff INHALATION Q4H PRN PRN #1 inhaler PRN Reason: Wheezing Benzonatate [Tessalon Perle] 200 mg PO TID PRN PRN #20 cap PRN Reason: Cough Prednisone [Deltasone] 40 mg PO DAILY #10 tab Doxycycline 100 mg PO BID #20 cap Referrals: Care Physician,No Primary [Primary Care Provider] - Hood Chavarria III, MD [STAFF PHYSICIAN] - 5-7 Days What to do if you have Problems For any increased pain, shortness of breath, bleeding, nausea or vomiting, chest pain, or any unexpected problems, contact your Primary Care Provider. Call [facility] ([phone]) or report to the closest Emergency Room. Call 911 if necessary. 04/07/18 1735 <Electronically signed by Paulina [place] DO> Date Paulina [place] DO Cosigner Signature (If Indicated): Date CC: No Primary Care Physician EMERGENCY DEPARTMENT Observed: 04/07/2018 Status: F Source: [place] SUMMARY 5:33 PM [facility] REPOSITORY [facility] Medical Records Department [address] [place] [address] Emergency Department Summary 04/07/18 1731 MR#: [id number] Acct: [id number] Name: LAVONNE HEREDIA Rep #: [id number] : 1975 43 From: Paulina [place] DO PCP: Care Physician, No Primary Status: PRE ER - ER Visit Summary Date of Service: 04/07/18 Chief Complaint: [Cough and shortness of breath History of Present Illness: The patient is a 43 F [presents to the emergency department with cough and shortness of breath times 2 days. Patient denies any fever. Patient has had some chills and sweats. Patient has had increased sputum production that is yellow and green at times. Patient complains of body aches and a sore throat. Patient generally feels weak. Patient does have a history of COPD. She denies any sick contacts.] Physical Examination: [HERANJIT-PERRLA, EOMI. Cranial nerves II through XII grossly intact. TMs clear. Mucous membranes moist. No adenopathy. Cardiovascular-regular rate and rhythm without murmur or ectopy Lungs-good aeration bilaterally. Minimal expiratory wheeze noted bilaterally. No accessory muscle use or retractions. No conversational dyspnea. Abdomen-normoactive bowel sounds, soft, nontender, no rebound or rigidity, no peritoneal signs. Extremities-intact 4, normal range of motion, normal pulses, atraumatic] Test Results: [None indicated] Emergency Department Course and Treatment: [] Treatment Plan: [Patient will be treated with doxycycline, Tessalon Perles, and prednisone. Patient also will be given a prescription for albuterol for her nebulizer as well as an butyryl MDI.] Disposition: [Discharged home in stable condition. Advised to return if increasing shortness of breath or condition should worsen anyway.] Impression: [Asthmatic bronchitis] This note was generated with Future Domain dictation software. It may contain incorrect words, spelling, and punctuation that were not noted in review of the chart prior to signing ED Disposition - Plan for ED Patient: Chief Complaint: Shortness of Breath Referrals: Care Physician,No Primary [Primary Care Provider] - What to do if you have Problems For any increased pain, shortness of breath, bleeding, nausea or vomiting, chest pain, or any unexpected problems, contact your Primary Care Provider. Call [facility] ([phone]) or report to the closest Emergency Room. Call 911 if necessary. 04/07/18 1733 <Electronically signed by Paulina [place] DO> Date Paulina [place] DO Cosigner Signature (If Indicated): Date CC: No Primary Care Physician EMERGENCY DEPARTMENT Observed: 12/19/2017 Status: F Source: [place] SUMMARY 2:48 PM [facility] REPOSITORY [facility] Medical Records Department [address] [place] [address] Emergency Department Summary 12/19/17 1446 MR#: [id number] Acct: [id number] Name: LAVONNE HEREDIA Rep #: [id number] : 1975 42 From: Balbir Muse MD PCP: Care Physician, No Primary Status: PRE ER - ER Visit Summary Date of Service: 12/19/17 Chief Complaint: Cough and shortness of breath History of Present Illness: The patient is a 42 F who presents with cough and shortness of breath. She has had a URI-like illness for about 1 week with congestion and cough and feeling short of breath. She has been diagnosed with likely COPD exacerbation. She has recently been treated with Antivert he also has an albuterol inhaler at home which she admits she is not using often. 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 She was referred to start him in clinic but has been unable to get in yet. She denies pain. Physical Examination: Afebrile vitals are normal Moist mucous membranes Heart regular rate and rhythm Lungs are clear no rales rhonchi or wheezes Abdomen soft Alert Test Results: Not indicated Emergency Department Course and Treatment: Patient clinically appears well. She has normal vital signs and normal pulse oximetry. She does not appear dyspneic. She does not have increased work of breathing or retractions. Her lungs are clear there is no wheezing. She does have a notable cough while in the room. She was advised to use her albuterol inhaler as needed at home but I do not believe she needs another course of steroids or antibiotics. I was advised that I think this will just take more time to improve. She was given a work note and discharged home. Treatment Plan: [] Disposition: Discharge Impression: Bronchitis This note was generated with Future Domain dictation software. It may contain incorrect words, spelling, and punctuation that were not noted in review of the chart prior to signing ED Disposition - Plan for ED Patient: Chief Complaint: Cough Referrals: Care Physician,No Primary [Primary Care Provider] - What to do if you have Problems For any increased pain, shortness of breath, bleeding, nausea or vomiting, chest pain, or any unexpected problems, contact your Primary Care Provider. Call [email or web address] ([phone]) or report to the closest Emergency Room. Call 911 if necessary. 12/19/171447 <Electronically signed by Balbir Muse MD> Date Balbir Muse MD Cosigner Signature (If Indicated): Date CC: No Primary Care Physician DISCHARGE INSTRUCTION Observed: 12/19/2017 Status: F Source: [facility] 2:48 PM [facility] REPOSITORY [facility] Medical Records Department [address] [place] [address] Discharge Instruction 12/19/171447 MR#: [id number] Acct: [id number] Name: LAVONNE HEREDIA Rep #: [id number] : 1975 42 From: Balbir Muse MD PCP: Care Physician, No Primary Status: PRE ER ED Disposition - Plan for ED Patient: Chief Complaint: Cough Instructions: Acute Bronchitis Referrals: Care Physician,No Primary [Primary Care Provider] - Mary Rider [NON-STAFF] - What to do if you have Problems For any increased pain, shortness of breath, bleeding, nausea or vomiting, chest pain, or any unexpected problems, contact your Primary Care Provider. Call [facility] ([phone]) or report to the closest Emergency Room. Call 911 if necessary. 12/19/171447 <Electronically signed by Balbir Muse MD> Date Balbir Muse MD Cosigner Signature (If Indicated): Date CC: No Primary Care Physician EMERGENCY DEPARTMENT Observed: 12/15/2017 Status: F Source: [place] SUMMARY 1:02 AM [facility] REPOSITORY [facility] Medical Records Department [address] [place] [address] Emergency Department Summary 12/14/17 2303 MR#: [id number] Acct: [id number] Name: LAVONNE HEREDIA Rep #: [id number] : 1975 42 From: Magdi Rutledge MD PCP: Care Physician, No Primary Status: DEP ER - ER Visit Summary Date of Service: 12/14/17 Chief Complaint: Cough History of Present Illness: The patient is a 42 F with no primary care physician. She reports she has cough began 3 days ago. Initially the sputum was clear. However, she reports is now become white and yellow. She was seen in the emergency department had a chest x-ray that was negative. She was placed on albuterol MDI and prednisone. She reports that she is not feeling any improvement. Patient complains of subjective fever, chills, cold sweats. She reports she has a sore throat with coughing only. She reports that she is short of breath and has been wheezing. She is getting transient relief with the inhaler. She does smoke half pack per day. Physical Examination: Vitals: Stable. Afebrile. General: Well-nourished and well-developed. Head: Normocephalic atraumatic. HEENT: Posterior oral pharyngeal erythema. No tonsillar exudate or enlargement. Neck: Supple, no lymphadenopathy. No JVD. Nontender. Cardiovascular: Regular rate and rhythm. No murmurs. Respiratory: No respiratory distress. Clear to auscultation bilaterally. Abdominal: Soft, nontender, nondistended, normal bowel sounds. No guarding, rebound, or peritoneal signs. Back: Nontender. Extremities: Nontender, no edema. Skin: Normal color, no rash. Neurologic: Alert and oriented 3. Cranial nerves II through XII are intact. Normal strength and sensation. Psych: Normal affect. Test Results: Chest x-ray shows emphysematous changes. Emergency Department Course and Treatment: Patient was treated albuterol Atrovent aerosols. She is given Tylenol and Zithromax p.o. She is resting comfortably. Treatment Plan: Patient will have Zithromax added to her albuterol MDI and prednisone at home. Instructed to follow-up the [facility] in 3-5 days if not improving. Return to the emergency department for any worsening symptoms. Disposition: To home in improved and stable condition. Impression: 1. COPD exacerbation. This note was generated with Future Domain dictation software. It may contain incorrect words, spelling, and punctuation that were not noted in review of the chart prior to signing ED Disposition - Plan for ED Patient: Disposition: Home or Assisted Living Chief Complaint: Cough Instructions: ED COPD Flare Prescriptions: Azithromycin [Zithromax] 250 mg PO DAILY #4 tablet Referrals: Mary Rider [NON-STAFF] - 3-5 Days if not improving What to do if you have Problems For any increased pain, shortness of breath, bleeding, nausea or vomiting, chest pain, or any unexpected problems, contact your Primary Care Provider. Call [facility] ([phone]) or report to the closest Emergency Room. Call 911 if necessary. 12/15/17 0102 <Electronically signed by Magdi Rutledge MD> Date Magdi Rutledge MD Cosigner Signature (If Indicated): Date CC: No Primary Care Physician CHEST PA AND LATERAL Observed: 12/14/2017 Status: F Source: [place] 9:52 PM [facility] REPOSITORY [facility] Imaging Services [address] [place] [address] Chest PA and Lateral MR#: [id number] Acct: [id number] Name: LAVONNE HEREDIA Rep #: [id number] : 1975 F 42 From: Danielle Dunaway MD PCP: Care Physician, No Primary Status: REG ER Study: Chest PA and Lateral Date of Exam: 12/14/17 Exam# [id number] Ordering Dr: Magdi Rutledge MD STUDY: X-RAY CHEST REASON FOR EXAM: Female, 42 years old. Cough TECHNIQUE: PA and lateral views of the chest. COMPARISON: December 11, 2017 chest x-ray FINDINGS: The lungs are hyperinflated there is no visualized focal consolidation or pleural effusion. There is no demonstrated pleural abnormality. Normal size heart. Normal mediastinum and stevan. Normal visualized pulmonary arteries. Normal visualized aortic arch and descending thoracic aorta. Normal visualized thoracic spine. Normal visualized ribs, clavicles, and shoulders. There is no demonstrated abnormality of the visualized soft tissue structures of the upper abdomen. RAD/Chest PA and Lateral IMPRESSION: Nonspecific hyperinflation of the lungs. Visualized focal infiltrate. Electronically Signed: Danielle Dunaway MD at 22:37 EDT Tel , Service support , CC: No Primary Care Physician; Magdi Rutledge MD Reference Data Expert: Signed EMERGENCY DEPARTMENT Observed: 12/12/2017 Status: F Source: [place] SUMMARY 12:00 AM [facility] REPOSITORY [facility] Medical Records Department [address] [place] [address] Emergency Department Summary 12/11/172037 MR#: [id number] Acct: [id number] Name: LAVONNE HEREDIA Rep #: [id number] : 1975 42 From: June Carmichael MD PCP: Care Physician, No Primary Status: DEP ER - ER Visit Summary Date of Service: 12/11/17 Chief Complaint: Cough, shortness of breath History of Present Illness: The patient is a 42 F presenting with cough, shortness of breath. Her symptoms started yesterday. She was exposed to another person with strep throat and bronchitis. She has had painful swallowing but no difficulty swallowing. She has had a nonproductive cough and shortness of breath. She has a history of COPD and states she is supposed to have a nebulizer but currently does not have any medications. She does not currently have a primary care physician. She is a smoker. She denies chest pain. Denies other complaints. Physical Examination: Vitals are stable. Patient is afebrile. Alert no acute distress. HEENT exam pharyngeal erythema with no exudate, uvula is midline Neck is supple. Lungs are expiratory wheezing bilaterally. Heart is regular rate and rhythm. Abdomen is soft nontender nondistended. Extremities are unremarkable. Skin is warm and dry. No focal neurologic deficit. Remainder of exam is unremarkable. Emergency Department Course and Treatment: Patient was given albuterol, Atrovent with improvement. Chest x-ray shows there are findings consistent with COPD. There is no evidence of acute chest disease. Rapid strep was negative. She is feeling improved following breathing treatments. Lungs are clear and equal bilaterally. She is given a prescription for prednisone. She is given an albuterol MDI. She is advised to follow with Dr. Randolph professional services specialist for no doc. Advised return to ED for worsening complaints. Disposition: Discharge home Impression: Bronchitis This note was generated with Future [employer] dictation software. It may contain incorrect words, spelling, and punctuation that were not noted in review of the chart prior to signing ED Disposition - Plan for ED Patient: Chief Complaint: Cold Sx Instructions: ED Upper Resp Infec No Abx Tx Prescriptions: Prednisone [Deltasone] 40 mg PO DAILY #10 tablet Referrals: Benedict Randolph MD [STAFF PHYSICIAN] - Care Physician,No Primary [Primary Care Provider] - What to do if you have Problems For any increased pain, shortness of breath, bleeding, nausea or vomiting, chest pain, or any unexpected problems, contact your Primary Care Provider. Call [facility] ([phone]) or report to the closest Emergency Room. Call 911 if necessary. 12/12/17 0000 <Electronically signed by June Carmichael MD> Date June Carmichael MD Cosigner Signature (If Indicated): Date CC: No Primary Care Physician DISCHARGE INSTRUCTION Observed: 12/11/2017 Status: F Source: [place] 8:38 PM [facility] REPOSITORY [facility] Medical Records Department [address] [address] Discharge Instruction 12/11/172036 MR#: [id number] Acct: [id number] Name: LAVONNE HEREDIA Rep #: [id number] : 1975 42 From: June Carmichael MD PCP: Care Physician, No Primary Status: REG ER ED Disposition - Plan for ED Patient: Chief Complaint: Cold Sx Instructions: ED Upper Resp Infec No Abx Tx Prescriptions: Prednisone [Deltasone] 40 mg PO DAILY #10 tablet Referrals: Care Physician,No Primary [Primary Care Provider] - Benedict Randolph MD [STAFF PHYSICIAN] - What to do if you have Problems For any increased pain, shortness of breath, bleeding, nausea or vomiting, chest pain, or any unexpected problems, contact your Primary Care Provider. Call [facility] ([phone]) or report to the closest Emergency Room. Call 911 if necessary. 12/11/172037 <Electronically signed by June Carmichael MD> Date June Carmichael MD Cosigner Signature (If Indicated): Date CC: No Primary Care Physician Observed: 12/11/2017 Status: F Source: [facility] STREP A (THROAT 6:30 PM [facility] RAPID NAHID) REPOSITORY Order Date: 12/11/17 Strep A Rapid Rapid Strep A Screen NEGATIVE A Disk (Conf. Cult) Negative for Strep Group A : All NEGATIVE screens will be confirmed with a culture. Performed By: #### M100.676 #### [facility] [address] [place], [address] CHEST 1 VIEW Observed: 12/11/2017 Status: F Source: [facility] (PORTABLE) 6:28 PM [facility] Imaging Services [address] [place] [address] Chest 1 View (Portable) MR#: [id number] Acct: [id number] Name: LAVONNE HEREDIA Rep #: [id number] : 1975 F 42 From: Feliciano Taylor MD PCP: Care Physician, No Primary Status: PRE ER Study: Chest 1 View (Portable) Date of Exam: 12/11/17 Exam# [id number] Ordering Dr: June Carmichael MD STUDY: X-RAY CHEST REASON FOR EXAM: Female, 42 years old. Cough and sore throat. TECHNIQUE: Single AP portable view of the chest. COMPARISON: None. FINDINGS: There is hyperinflation of the lungs consistent with chronic obstructive lung disease (COPD). No infiltrates or effusions. There is no demonstrated pleural abnormality. Normal size heart. Normal mediastinum and stevan. Normal visualized pulmonary arteries. Normal visualized aortic arch and descending thoracic aorta. Normal visualized thoracic spine. Normal visualized ribs, clavicles, and shoulders. There is no demonstrated abnormality of the visualized soft tissue structures of the upper abdomen. RAD/Chest 1 View (Portable) IMPRESSION: There are findings consistent with COPD. There is no evidence of acute chest disease. Electronically Signed: Feliciano Taylor MD at 18:45 EDT , Service support , CC: No Primary Care Physician; June Carmichael MD Reference Data Expert: Signed DOWNTIME REPORT Observed: 09/16/2017 Status: F Source: [facility] 1:43 PM [facility] Medical Records Department [address] [place] [address] Downtime Report MR#: [id number] Acct: [id number] Name: LAVONNE HEREDIA Rep #: [id number] : 1975 42 From: Gilmer Jackson MD PCP: Care Physician, No Primary Status: [facility] This patient was seen during an EMR downtime August 31, 2017 - September 07, 2017. This patient may have a combination of paper and electronic documentation or all paper documentation. All documentation is viewable within the e-chart portion of [employer] for each patient visit. URINALYSIS, COMPLETE Collected: 09/01/2017 Status: F Source: [place] 8:35 AM [facility] REPOSITORY Order Comment: How was Urine Obtained? CLEAN CATCH TYPE CODE TESTS RESULT OUT OF RANGE REFERENCE UNITS LAB L400.3000 Yellow COLOR Normal Yellow LAB L400.3050 Clear Normal CLARITY Clear LAB L400.3200 Normal mg/dl Normal GLUCOSE, UR Normal LAB L400.3300 Negative mg/dL Normal BILIRUBIN URINE Negative LAB L400.3400 Negative mg/dl Normal KETONE UR Negative LAB L400.3465 1.002-1.030 Normal SP.GR. DIPSTX 1.020 LAB L400.3550 5.0 - 8.0 pH UR Normal 5.0 LAB L400.3600 Negative mg/dl PROT Normal DIPSTX Negative LAB L400.3700 Normal mg/dl Normal UROBILI Normal LAB L400.3750 Negative Normal NITRITE UR Negative LAB L400.3780 Negative /ul Normal OCCULT BLOOD-UR Negative LAB L400.3800 Negative /ul LEUK Normal ESTERASE Negative LAB L400.4050 0-5 /hpf WBC 0 Normal SEEN LAB L400.4100 0-5 /hpf 0 Normal RBC-UA SEEN LAB L400.4150 5-10 /hpf SQUAM 0 Normal EPI SEEN LAB L400.4300 None Seen /hpf 0 Normal BACTERIA SEEN LAB L400.4350 <or=2+ /hpf 0 Normal MUCUS, URINE SEEN LAB L400.5200 None Seen /hpf Normal YEAST-URINE RARE Performed By: #### L400.0001 #### [facility] [address] [place], [address] ,URINE Collected: 09/01/2017 Status: F Source: [place] 8:35 AM [facility] REPOSITORY TYPE CODE TESTS RESULT OUT OF REFERENCE UNITS RANGE LAB L400.8000 Negative Normal HCGUQUAL Negative Result Comment: Very dilute urine specimens, as indicated by a low specific gravity, may not contain sales representative groceries levels of hCG. If is still suspected, a first morning urine specimen should be collected 48 hours later and tested. Performed By: #### L400.7600 #### [facility] [address] [place], [address] ALLERGIES ALLERGIES DATE TYPE / CODE NAME / CODE REACTION SEVERITY SOURCE 04/20/2018 Drug neomycin/[id number] Rash Unknown [place] Allergy/416 775(RXNORM) [facility] 427337([facility] ED CT) Repository 04/20/2018 Drug bacitracin/F0060 Rash Unknown [place] Allergy/416 82521(RXNORM) Community 302404([facility] ED CT) Repository 04/20/2018 Drug polymyxin Rash Unknown [place] Allergy/416 B/Q622998589(RXN Community 754359([facility] OR) [facility] ED CT) Repository 04/20/2018 Drug bee venom Anaphylaxis Unknown [place] Allergy/416 protein (honey Community 178795([facility] bee)/[id number]( Hospital ED CT) RXNORM) Repository Drug/799982 No Known [facility] 003([facility] CT) System Repository Drug/124168 Neosporin [facility]ational 003([facility] CT) System Repository ENCOUNTERS ENCOUNTERS ADMIT/DISCHARGE ACCOUNT NUMBER ADMITTING ENCOUNTER LOCATION SOURCE CLASS 04/23/2018/04/23/19 [id number] Ambulatory [address] [place] Repository 04/22/2018/04/22/19 [id number] Ambulatory [address] Repository 04/22/2018/04/22/19 [id number] Ambulatory [address] Repository 04/20/2018/04/21/19 [id number] Emergency [place] [address] ding:ED Repository 04/14/2018/04/14/[id number] [facility] ding:[facility] Repository 04/14/2018/04/14/[id number] [facility] ding:CD:[address] [place] [address]Tefc: Repository CD:[id number] 04/14/2018 [id number] Ambulatory [address] [facility] Repository 04/09/2018/04/09/19 [id number] [place], Emergency [facility] ding:[facility] EDRoom: WR Repository 04/09/2018 [id number] Ambulatory [address] [facility] Repository 04/07/2018/04/07/19 [id number] Emergency [place] [facility] ding:ED Repository 12/19/2017/12/20/19 [id number] Emergency [place] [facility] ding:ED Repository 12/14/2017/12/15/19 [id number] Emergency [place] ding:ED Repository 12/11/2017/12/12/19 [id number] Emergency [place] ding:ED Repository 09/01/2017/09/02/19 [id number] Emergency [place] ding:ED Repository PAYERS PAYERS ENCOUNTER GUARANTOR PAYER SUBSCRIBER SOURCE 04/20/2018 LAVONNE S Primary NOT GIVENUNK [place] [id number] 03/31 Insurance:SELF PAY [place], [place] Number: Effective Repository [phone]: [phone] Date:2018-04-20 [phone] () 04/14/2018 DIONNAA S Primary LAVONNE [facility] STROUDDOB: Insurance:Self STROUDDOB: [facility] PayPolicy Number: [id number] System [address] Effective [facility] [address] Repository 7090Tel: [phone]) Date:2018-04-142649Tel: () [phone] Name:Self Pay () () 04/14/2018 DIONNAA S Primary LAVONNE [place] [facility] STROUDDOB: Insurance:Self STROUDDOB: [facility] PayPolicy Number: [id number] System [address] Effective [facility] Repository [address] [place] [address], Date:2018-04-14 - [address] [place] [address]Urs: [id number] [place] [phone]: Name:Self Pay (HP) (HP) (WP) 04/14/2018 [facility] STROUDDOB: Insurance:Self STROUDDOB: Hospitals PayPolicy Number: [id number] Repository [facility] Effective Date:[address], Name:[address] [phone]: [place] [phone]: (HP) (HP) 04/09/2018 [facility] STROUDDOB: Insurance:Self STROUDDOB: [facility] PayPolicy Number: [id number] System / COLLEGE Effective 03/31 [place], [place] Date:2018-04-09 - [place] [address]Puq: [id number] [phone]: Name:Self Pay (HP) (HP) (WP) 04/09/2018 [facility] STROUDDOB: Insurance:Self STROUDDOB: Hospitals PayPolicy Number: [id number] Repository [facility] Effective Date:[address], Name:[address] [phone]: [place] [phone]: (HP) (HP) 04/07/2018 [facility] [id number] 1/2 Insurance:SELF PAY [facility] [place] Number: Effective Repository [id number]: ([phone] Date:2018-04-07 [phone] () 12/19/2017 LAVONNE S Primary NOT GIVENUNK [place] [id number] 1/2 Insurance:SELF PAY [facility], [place] Number: Effective Repository [id number]: ([phone] Date:2017-12-19 [phone] () 12/14/2017 LAVONNE S Primary NOT GIVENUNK [place] [id number] 1/2 Insurance:SELF PAY [facility], [place] Number: Effective Repository [phone]: ([phone]) Date:2017-12-14 [phone] () 12/11/2017 LAVONNE S Primary NOT GIVENUNK [place] [id number] 1/2 Insurance:SELF PAY [facility], [place] Number: Effective Repository [id number]: ([phone]) Date:2017-12-11 [phone] () 09/01/2017 LAVONNE S Primary NOT GIVENUNK [place] [id number] 1/2 Insurance:SELF PAY [facility], [place] Number: Effective Repository [id number]: ([phone]) Date:2017-09-01 [phone] ()
== END 2018-04-21 00:37 | disposition home or self-care (01) ==
PROVIDERS: Emergency Provider Emergency Medicine
DX: J44.1 Chronic obstructive pulmonary disease with (acute) exacerbation (principal); F17.200 Nicotine dependence, unspecified, uncomplicated
CPT/HCPCS: 71046; 80048; 85025; 94640; 99284; A4216